=== PATIENT | female | born 1985 | race Two or more races ===

== ENCOUNTER 2017-12-05 05:00 | Emergency (ER) | payer SELFPAY ==
[~2017-12-05] VITALS: Ht 162.6 cm; Wt 63.5 kg
[2017-12-05 05:05] VITALS: BP 101/71
--- NOTE | 2017-12-05 05:06 | Emergency Room Report ---
History of Present Illness General Source: Patient, Friend Present Illness HPI This is a 32-year-old female with history of panic attack with infrequent attacks. She's also doesn't drink much. She present tonight with panic attack/ anxiety and vomiting. Onset was tonight. She was drinking tonight and had vomiting. That trigger her anicteric attack. She has been hyperventilating and crying. She's been try to vomit by sticking her finger down her throat. Her friend/roommate called 911. She denies suicidal thoughts homicidal thought. Denies any other drug use. Last time something like this occurred was last year. Allergies: Coded Allergies: No Known Allergies (Unverified , 12/05/17) Patient History Past Medical History: see triage record, old chart reviewed, psych hx Past Surgical History: other Pertinent Family History: none Social History: Reports: alcohol use - social Now: No Immunizations: other Reviewed Nursing Documentation: PMH: Agreed; PSxH: Agreed Review of Systems Eye: Denies: eye pain, blurred vision ENT: Denies: ear pain, nose congestion, throat swelling Respiratory: Reports: shortness of breath; Denies: cough Cardiovascular: Denies: chest pain, palpitations Gastrointestinal: Reports: nausea, vomiting; Denies: abdominal pain, diarrhea Musculoskeletal: Denies: back pain, joint pain Skin: Denies: rash Neurological: Denies: headache, numbness Endocrine: Denies: increased thirst, increased urine Hematologic/Lymphatic: Denies: easy bruising All Other Systems: negative except mentioned in HPI Physical Exam vitals with tachycardia Sp02 EP Interpretation: reviewed, normal General Appearance: well appearing, no apparent distress, alert Head: normocephalic, atraumatic Eyes: bilateral eye PERRL, bilateral eye EOMI ENT: hearing grossly normal, normal pharynx Neck: full range of motion, supple, no meningismus Respiratory: chest non-tender, lungs clear, normal breath sounds Cardiovascular #1: regular rate, rhythm, no murmur Gastrointestinal: normal bowel sounds, non tender, no mass, no organomegaly, no bruit, non-distended Musculoskeletal: back normal, gait/station normal, normal range of motion Psychiatric: anxious Skin: warm/dry Medical Decision Making Diagnostic Impression: Primary Impression: Panic attack ER Course Patient presents with a panic attack secondary to alcohol abuse/intoxication. She is much calmer now after Ativan. We'll discharge home. Patient denies suicidal thoughts or homicidal thought. No criteria for 5150. Status: improved Disposition: HOME, SELF-CARE Condition: Improved Scripts Lorazepam* (ATIVAN*) 0.5 Mg Tablet 0.5 MG ORAL THREE TIMES A DAY PRN for For Anxiety, #10 TAB Prov: JERONIMO PABLO M.D. 12/05/17 Additional Instructions: Follow-up with your doctor in 7 days. Return of worse. JERONIMO PABLO M.D. Dec 05, 2017 05:06
[2017-12-05] MEDS ORDERED: LORazepam Inj 2mg/ml 1ml IM ONE (05:15)
[2017-12-05] MEDS ORDERED: ATIVAN0.5 MG ORAL (05:56)
[2017-12-05 06:00] VITALS: BP 104/68
== END 2017-12-05 06:00 | disposition home or self-care (01) ==
LOC: EDBD 05:00 → EMR 05:14
DX: F41.0 Panic disorder [episodic paroxysmal anxiety] (principal)
CPT/HCPCS: 96372; 99283